=== PATIENT | female | born 1965 | race Caucasian/White ===

== ENCOUNTER 2020-10-27 16:14 | Inpatient (IN) | payer BC ==
[~2020-10-27] VITALS: Ht 170.2 cm; Wt 146.1 kg
--- NOTE | ~2020-10-27 | D ---
[facility] [place] [address] DISCHARGE SUMMARY Name: ZONIA MOLINA Room #: 522B-B [facility] IN M.R.#: [id number] Admission: 10/28/20 Attend Phys: Glenroy Wiggins DO Discharge: 11/17/20 Date of : 61 Report #: [id number] THIS REPORT FOR: cc: Physician not on staff Physician not on staff Glenroy Wiggins DO ~ DATE OF SERVICE: 11/17/2020 INPATIENT PSYCHIATRIC DISCHARGE SUMMARY ATTENDING PSYCHIATRIST: Glenroy Wiggins DO. MATERIALS MANAGEMENT MANAGER AT TIME OF DISCHARGE: Octavio Mars MD DISCHARGE DIAGNOSES: Bipolar 1 disorder, most recent episode manic with psychotic and catatonic features, much improved. Additional comorbidities include diarrhea, C. diff negative, resolved at time of discharge; hypertension; urinary tract infection, treated with Keflex; urinary incontinence; history of morbid obesity with a BMI of 50.5; compression fracture noted on x-ray, reports that is old. DISCHARGE PLAN: The patient is being discharged to the [facility] nursing facility. She does need skilled therapies, specifically PT and OT including gait disturbance, limited endurance, strength and needed improvement with ADLs. DIET: Regular. ACTIVITY LEVEL: As tolerated. DISCHARGE MEDICATIONS: Simvastatin 40 mg oral daily for hyperlipidemia, lisinopril 10 mg oral daily for hypertension, Lovenox 40 mg subcutaneous at bedtime. Gait is diminished. Depakote ER 1000 mg oral in the morning and 1500 mg oral at bedtime, Neurontin 300 mg oral 3 times daily for pain, Seroquel 300 mg oral 3 times daily for psychosis, magnesium oxide 400 mg oral twice daily as a supplement, acidophilus bulgaricus 1 packet oral before meals and at bedtime, that is 4 times a day for bowel health. Senna 8.8 mg oral twice daily, hold if diarrhea. Levothyroxine 25 mcg oral daily for replacement. Nystatin and triamcinolone 15 g cream, 2 g topical twice daily under ____. Recommended continuation 2 weeks from now until resolved. Dermacerin 4 ounce, apply daily to dermatitis below ____. LABORATORY DATA: This admission, most recently 11/16/2020, H and H 13.4 and 40.7, white count 7.9, platelet count 226. Coagulation: D-dimer done 11/10/2020 which was 0.37, which is normal. Chemistries from 11/16/2020, sodium 137, potassium 4.3, chloride 99, bicarbonate 31, anion gap 7, BUN 5, creatinine [address] [address] DISCHARGE SUMMARY Name: ZONIA MOLINA Room #: 52-B [facility] IN M.R.#: [id number] Admission: 10/28/20 Attend Phys: Glenroy Wiggins, DO Discharge: 11/17/20 Date of : 61 Report #: [id number] 1.1, estimated GFR 51, glucose 154, calcium 9.5, magnesium ____ 11/10/2020 at 1.4. TSH was normal at 1.001 on 11/02/2020. Micro this admission, occult blood was negative. Urine culture from 11/01/2020 showed 3 or more organisms, so was negative culture. REASON FOR ADMISSION: Back on or so october was as follows: A 55-year-old morbidly obese female. She was brought to [facility] on 10/24/2020 with altered mental status. She was admitted medically there. There was evidence of catatonia. Once she was medically stabilized, she was sent for psychiatric admission. HOSPITAL COURSE: The patient was admitted to Geriatric Psychiatry Unit. Initially saw by Dr. Sneed. She had predominant catatonic features, was given lorazepam trial. The next day or so, I assumed her care. I put her on scheduled lorazepam. There was a dramatic switch to frankly manic expressed presentation. We had instances of impulsivity and agitation. She was started on Seroquel in addition to the Depakote, she is on a lower dose. Depakote was titrated to a blood level of 90. Seroquel, she was titrated to greater than 900 mg a day. Slowly things improved throughout the admission. It was obvious she is needing extra help with her ADLs and physical conditioning. The patient was agreeable to a fci facility. It should be noted her , Tobi, was very involved. He did admit that the patient isolates herself and has little activity. He works during the day. The patient was counseled on this. CONDITION AT DISCHARGE: Stable, not suicidal or homicidal. PHYSICAL EXAMINATION: VITAL SIGNS: On the day of discharge are as follows, it looks like most recent from 11/16/2020, temperature 97.2, pulse 103, BP 136/85 ____ 1931, O2 sat 95%. MUSCULOSKELETAL: Morbidly obese female, seated in chair usually, ambulates with walker. MENTAL STATUS EXAMINATION: This is a well-developed, morbidly obese female appearing at least stated age. Attention fair. Concentration fair. Speech is normal in rate, volume and tone. Thought process is linear and goal directed. Thought content focused on going to Rehabilitation Facility. No psychomotor agitation. No psychomotor retardation. Mood and affect was congruent and euthymic. Denied SI or HI. Denied auditory, visual, or tactile hallucinations. Memory not formally tested. Insight limited. Judgment fair to limited. Fund of knowledge average range. PROGNOSIS: For this patient is guarded and will depend on her compliance with [facility] [address] [place] [address] DISCHARGE SUMMARY Name: ZONIA MOLINA Room #: 522B-B [facility] IN M.R.#: [id number] Admission: 10/28/20 Attend Phys: Glenroy Wiggins DO Discharge: 11/17/20 Date of : 61 Report #: [id number] treatment, the efforts during her fci stay and continuing to maintain an active engaged life versus her behavior prior to hospitalization. By: [id number] Glenroy Wiggins, /nt
[~2020-10-27 16:14] MED LIST: AMITRIPTYLINE H10 M1 PO; CLONAZEPAM; CLONAZEPAM 1 MG1 M1 PO; CYCLOBENZAPRINE10 MG; DESYREL100 MG PO; DESYREL50 MG PO; ESKALITH300 MG PO; FLEXERIL PO; GYNODIOL0.5 MG PO; HYDROXYZINE HCL25 M1 PO; LAMICTAL XR100 MG PO; LEVOTHYROXIN0.025 MG PO; LEXAPRO 10 MG T10 MG PO; LITHIUM CARBON450 MG PO; SEROQUEL 100 M100 MG PO; SEROQUEL XR 30300 M1 PO; SIMVASTATIN40 MG PO
[2020-10-27] MEDS ORDERED: DIVALPROEX SOD500 M1 PO (19:19)
[2020-10-27] MEDS ORDERED: PROZAC20 M1 PO (19:51)
[2020-10-27] MEDS ORDERED: NEURONTIN100 MG PO (19:52)
[2020-10-27] MEDS ORDERED: LISINOPRIL10 MG PO (19:54)
[2020-10-27] MEDS ORDERED: MELOXICAM15 MG PO (19:55)
[2020-10-27] MEDS ORDERED: REMERON15 M2 PO (19:56)
[2020-10-28 05:19] VITALS: BP 128/84
--- NOTE | 2020-10-28 06:49 | NUR ---
RECEIVED REPORT FROM GAUTAM JENKINS FROM ED. PT ARRIVED ON H UNIT 0450 AND CARE WAS TRANSFERRED PT AAOX1, VS B/P 128/87, P 92, R 18, T 98.0, 02 SAT 94% RA RR EVEN AND NONLABORED. PT HAS BEEN NONVERBAL, BUT ANSWERES QUESTION SHAKING HEAD IN YES OR NO FASHION. PT DENIED SI/HI AND PAIN AT THIS TIME. CONSENTS RECEIVED FROM CATRACHITA, MARY MOLINA WITH CONFIRMATION OF MEDICATION. HCP Carol VELAZQUEZ DO CONSULTED AND ORDERS RECEIVED. PT HAS A HX HTN, OBESITY, MENIERES, BI-POLAR, ANXIETY. PT HAS REDNESS IN KRYSTLE AREA AND IN SKIN FOLDS. ZERO S/S OF ACUTE DISTRESS NOTED, PT WILL CONTINUE TO BE MONITOR PER [facility] PROTOCOL.
[2020-10-28 10:03] VITALS: BP 158/93
[2020-10-28 10:58] LABS: HEMATOCRIT 41.7 % (37.0-47.0); HEMOGLOBIN 13.7 gm/dL (12.0-15.0); MCH 32.6 pg (26.0-34.0); MCHC 32.9 g/dL (28.0-37.0); MCV 99.1 fL (80.0-100.0); RBC 4.21 mil/uL (4.20-5.00); RDW 14.1 % (10.5-14.5); WBC 14.3 thou/uL (4.0-11.0)
[2020-10-28 11:19] LABS: CALCIUM 9.8 mg/dL (8.5-10.1); CREATININE 1.1 mg/dL (0.6-1.0); POTASSIUM 4.2 mmol/L (3.5-5.1)
--- NOTE | 2020-10-28 17:20 | NUR ---
0700 ASSUMED CARE OF PATIENT, PATIENT SITTING UP IN BED WITH EYES CLOSED. PATIENT TAKEN BREAKFAST IN BED @0815. 0900 PROPERTY MAINTENANCE SUPERVISOR TO ROOM OBSERVED PATIENT MOVING FOOD AROUND ON TRAY, PILING FOOD IN APPLESAUCE. PROPERTY MAINTENANCE SUPERVISOR ASKED PATIENT QUESTIONS, PATIENT ABLE TO VOICE FULL NAME THEN WHEN ASKED OTHER QUESTIONS PATIENT NODS HEAD STATING YES TO EVERY QUESTION ASKED. PATIENT THEN ROLLS EYES BACK IN HEAD FLICKERING EYE LIDS. PATIENT THEN OPENS EYES AND CONTINUES TO MOVE FOOD AROUND. PROPERTY MAINTENANCE SUPERVISOR LEAVES AND RETURNS A MIN LATER. PATIENT AGAIN ANSWERS A QUESTION THEN BECOMES SILENT AND STARES INTO SPACE. PROPERTY MAINTENANCE SUPERVISOR EXPLAINS TO PATIENT ABOUT MEDICATIONS, THEN ASKS PATIENT IF SHE WILL TAKE MEDS. PATIENT NODS YES TAKES MED CUP AND POURS MEDICATION IN MOUTH. GRABBED CUP OF WATER AND STARTED TO POUR WATER ON TRAY. PROPERTY MAINTENANCE SUPERVISOR STOPPED HER AND MOVED CUP TOWARDS MOUTH. PATIENT TAKES WATER AND SWALLOWS MEDICATION. PATIENT ASSISTED TO GERICHAIR BEFORE LUNCH X MAX ASSIST X2. PATIENT TO DAYROOM, WATCHING TV QUIETLY. PATIENT CONTINUES WITH SAME BEHAVIOR THIS MORNING WITH ALL STAFF ATTEMPTING TO WORK WITH PATIENT. PATIENT CLOSES EYES, FLICKERS EYES, OR REMAINS SILENT WHEN TALKED TO. AFTERNOON MEDICATION PATIENT TAKES CUP WITHOUT DIFFICULTY AND TAKES MEDICATION. PATIENT ASSISTED WITH DINNER BY LASTING MACHINE OPERATOR BED. PATIENT DOES NOT EAT UNLESS FED. PROPERTY MAINTENANCE SUPERVISOR SPOKE WITH SPOUSE, SPOUSE STATES PATIENT WALKED TO HER RECLINER ON THIS PAST TUESDAY AND AFTER THAT WAS NOT WALKING ANYMORE. SPOUSE ALSO MENTIONED PATIENT NOT SPEAKING FROM THAT POINT ON. WILL CONTINUE TO OBSERVE
--- NOTE | 2020-10-28 18:05 | NUR ---
PATIENT INCONTINENT, PATIENT TAKEN TO ROOM TO CHANGE BREIF. PATIENT MOANS AND GRUNTS FOR A FEW SECONDS, PATIENT THEN STANDS UP WITH MIN ASSIST. PATIENT ROTATES AND SITS ON SIDE OF BED. NEDA CARE PROVIDED WITH ZGARD APPLIED TO FOLDS. PATIENT SITS UP IN BED WITH NO RESPONSE WHEN ASKED QUESTIONS. PATIENT STARES WITH NO RESPONSE.
[2020-10-28 21:00] VITALS: BP 128/84
--- NOTE | 2020-10-29 03:18 | NUR ---
10-28-20 CARE TRANSFERRED 1899 OBSERVED PT SITTING IN BED SUPINE WITH EYES OPEN. LATER PT AAOX2, VSS, RR EVEN AND NONLABORED ON RA, PT HAVING TROUBLE ARTICULATING WORDS, BUT TRYING TO COMMUNICATE. DOES GET OUT HEADACH AND MANAGED WITH PRN MEDICATION, PT HAS BEEN PUTTING WORDS TOGETHER AND HAS EATEN TWO JELLO CUPS AND APPROXIMATELY 480ML OF WATER. PT DOES REPORT FEELING SI BUT HAS NO PLAN BUT DENIES HI. DURING REASSESSMENT FOR PAIN MEDICATION NOTED PT RESTING WITH EYES CLOSED. LATER PT HOLLARED OUT, AND RESPONED AND PT REPORTED SHE WAS SCARED; PT REPORTED SHE WANTED TO GO TO DAY ROOM. PT ASKED IF SHE WANTED TO USE TOLIET FIRST AND PT WAS PLACED ON BEDSIDE COMMODE WITH POTTY HAT, NO URINE AND NOTED BRIEF WAS HEAVY WITH URINE, PT WAS ASSISTED WITH DRY BRIEF AND PT WAS THEN TRANSFERRED TO CHAIR, PT IS A TWO PERSON ASSIST WITH GAIT BELT, PT UNSTEADY AND WEAK. PT HAS CONTINUE TO WORKING ON COMMUNICATING WITH WORDS. PT HAS BEEN PLESANT, ANXIOUS AND COOPERATIVING. ZERO S/S OF ACUTE DISTRESS NOTED, PT WILL CONTINUE TO MONITOR PER [facility] PROTOCOL.
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
[2020-10-29 10:12] VITALS: BP 141/68
--- NOTE | 2020-10-29 10:27 | NUR ---
Nutrition: Pt with hx of bipolar, HTN, HLD. Pt only speaking a couple of words. reported pt stopped eating, walking, talking last week. BUN 20, Cr 1.1. Intake 100% of 2 meals recorded. BMI inidicates class III morbid obesity, no prior wt hx available. Pt appears at low-mild nutrition risk.
--- NOTE | 2020-10-29 14:43 | NUR ---
0700 ASSUMED CARE OF PATIENT, PATIENT IN DAYROOM AT THAT TIME. PATIENT NOTED FEEDING SELF THIS AM. PATIENT IS QUIET AND DOES ANSWER SIMPLE QUESTIONS. PATIENT TEARY EYED THIS MORNING. WOOD FURNITURE ASSEMBLER TALKED TO PATIENT, PATIENT LISTENED BUT DID NOT RESPOND. MEDICATIONS TAKEN WHOLE WITHOUT DIFFICULTY. PATIENT PRESENT IN GROUPS TODAY. PATIENT NOTED TALKING WITH OTHER PATIENTS. PATIENT CALM AND COOPERATIVE. PATIENT WORKS WITH OT WITH MIN TO STANDBY ASSIST. ORDERS RECIEVED FROM DR FOR Q2 HR TOILETING. PATIENT INCONTINENT. NO C/O PAIN, LS CLEAR, BS ACTIVE.
[2020-10-29 19:46] VITALS: BP 121/85
--- NOTE | 2020-10-30 05:24 | NUR ---
10-29-20 CARE TRANSFERRED 1900 OBSERVED PT SITTING IN DAY ROOM RESTING WITH EYES CLOSED. WHILE AWAKE PT HAS BEEN TAKEN TO BEDSIDE COMMODE PER PROVIDER ORDERS, UNABLE TO OBTAIN UA, BRIEF FULL, YELLOW URINE. ZERO S/S OF ACUTE DISTRESS NOTED, PT WILL CONTINUE TO BE MONITOR PER [facility] PROTOCOL.
[2020-10-30 08:06] VITALS: BP 167/106
[2020-10-30 11:00] VITALS: BP 136/88
--- NOTE | 2020-10-30 11:43 | NUR ---
INVENTORY CLERK completed 1;1 with pt for aprx 35 minutes. Pt provided a color by number sheet and was able to follow directions and remain on task for aprx 10 minutes until beginning to scribble on page. At this time she began yelling out single words or letters. Therapist asked pt if something was telling her to say these words and pt responded in the affirmative. She then shouted, "after ECT!" and began crying hysterically. Pt relays that she had ECT 25 years ago and hears voices. Unsure of the reality of this. Pt then began drawing smiley faces, numbers, and letters throughout her page; "the lady told me to. The lady in red." and looks to her side where a male patient in yellow is seated. Following 1;1 pt is left seated in dayroom where she has continued to color a new page. She intermittently yells out objects she sees- "windows!" or "hi grandpa!" as a male pt is wheeled near her.
--- NOTE | 2020-10-30 14:07 | NUR ---
Patient has had several, incontinent, loose stools. Stool foul odor, loose. No laxatives prescribed/administered. Spoke with Dr. Wiggins. Order for c-diff lab completed. Stool collected and sent to lab.
--- NOTE | 2020-10-30 15:06 | NUR ---
0700 ASSUMED CARE OF PATIENT, PATIENT SITTING IN WC AT THAT TIME. PATIENT CALM AND QUIET. BREAKFAST ARRIVES AND PATIENT ASSISTED WITH MEAL SET UP. PATIENT NOTED TALKING OUT LOUD READING THE Credor[employer] BOARD IN DAYROOM VOICING ONE LETTER AT A TIME. PATIENT NOTED CRYING AND TEARY EYED TODAY. PATIENT OBSERVED POINTING AT STAFF AND PATIENTS BLURTING OUT RANDOM WORDS SUCH : , BLACK, [place], FAT" AND ON AND ON. PATIENT CONTINUES THIS BEHAVIOR WITH INCREASED AGGITATION. DR'S ORDER RECIEVED FOR ONE TIME SEROQUEL 75MG PO, GIVEN AT 1305. PATIENT WAS UNABLE TO FEED SELF, PATIENT MAKING MESS OF FOOD ATTEMPTING TO POUR FOOD EVERYWHERE. PATIENT DID NOT EAT MUSH OF MEAL. PATIENT TO WITH LOOSE STOOL 3RD STOOL TODAY, SAMPLE COLLECTED AND SENT FOR C-DIFF. RESULTS PENDING AT THIS TIME. PATIENT SITTING IN DAYROOM QUIETLY AT THIS TIME.
[2020-10-30 19:59] VITALS: BP 134/89
[2020-10-30 23:33] VITALS: BP 134/89
--- NOTE | 2020-10-31 00:06 | NUR ---
ASSUMED CARE ON 10/30/20 @ 1900, SEATED IN A W/C ADJACENT TO THE NURSES DESK. PROPELLED SELF INTO A MALE PEER'S ROOM AND HOLDING ONTO HIS BED WHEN STAFF ATTEMPTED TO WHEEL HER OUT OF THE ROOM. INCREASING AGITATION, PHYSICALLY RESISTING CARE AND REDIRECTION. HOLDING PEERS CHAIRS AND PUTTING SELF AND PEERS SAFETY AT RISK. PHYSICALLY HOLDING STAFF AND REFUSING TO RELEASE GRASP. REFUSING PO MEDS. ORDER OBTAINED FOR GEODON 20MG IM, ADMINISTERED IN THE R DELTOID WITH X3 STAFF ASSISTANCE. AFTER ABOUT AN HOUR, RETIRED TO BED BY STAFF. A SECOND ATTEMPT WAS MADE TO PROVIDE P.O. MEDS WHICH THE PATIENT CONTINUED TO REFUSE. IN BED WITH BED IN LOW POSITION, BED ALARM SET, WILL CONTINUE TO MONITOR PER UNIT PROTOCOL FOR PATIENT SAFETY AND COMFORT.
--- NOTE | 2020-10-31 08:20 | NUR ---
PT SLEEPING AT THIS TIME. PT UNABLE TO TAKE MEDICATIONS OR EAT BREAKFAST AT THIS TIME. PT SEEMS CALM AND RESTING WITH EYES CLOSED.
[2020-10-31 09:57] LABS: HEMATOCRIT 40.4 % (37.0-47.0); HEMOGLOBIN 13.4 gm/dL (12.0-15.0); MCH 33.1 pg (26.0-34.0); MCHC 33.2 g/dL (28.0-37.0); MCV 99.7 fL (80.0-100.0); RBC 4.06 mil/uL (4.20-5.00); RDW 14.3 % (10.5-14.5); WBC 10.9 thou/uL (4.0-11.0)
[2020-10-31 10:00] VITALS: BP 156/96
[2020-10-31 10:11] VITALS: BP 156/96
--- NOTE | 2020-10-31 10:36 | NUR ---
PT WORKING WITH THERAPY AT THIS TIME PT/OT PT DID SIT ON THE COMMODE AND WAS TRYING TO OBTAIN A UA. PT ONLY VOIDED A DIME SIZE CREAMY COLOR. PT WALKED BACK WITH WALKER TO BED AND LAYED DOWN. PT DIDN'T WANT TO GET UP. PT TOOK MEDS WHOLE. PT STATED SHE HAS BEEN HAVING TROUBLE SAYING BLACK. PT CAN ANSWER QUESTIONS WITH ONE WORD ANSWERS.
--- NOTE | 2020-10-31 15:29 | NUR ---
ARIEL contacted Pt's DPOA/ , El Hanson, concerning a phone call from Pt's mother, Ms. Mendiola. ARIEL informed that the Pt's mother called the hospital looking for Pt and asked El to inform Ms. Mendiola the hospital is not able to give her any information due to HIPPA Laws. El stated he would inform the Pt's mother of this information.
--- NOTE | 2020-10-31 17:35 | NUR ---
PT HAD TROUBLE WITH TAKING MEDS. PT DID TAKE FINALLY. PT NOT TALKING WITH STAFF. PT SHAKING HEAD YES AND NO WITH ANSWERING QUESTIONS. PT DIDN'T EAT BREAKFAST, LUNCH, AND DINNER. PT HITTING ON BEDSIDE TABLE, AND PULLING IT BACK ONTO HER.
[2020-10-31 20:18] VITALS: BP 120/82
--- NOTE | 2020-11-01 05:29 | NUR ---
Assumed care of patient at 1900. Pt sitting in w/c at start of this shift. Pt medication complaint. Pt compliant with HS nursing assesment. Pt denies pain. Pt denies depression and SI;HI. Pt does nod her head yes when asked if she was having any anxiety. Does not rate. Pt has been non-verbal during assessment and when approached by staff. Pt is on q12 minute checks for safety. Will continue to monitor and document any changes.
[2020-11-01 09:16] VITALS: BP 129/69
[2020-11-01 12:22] LABS: URINE BILIRUBIN NEGATIVE (Negative); URINE BLOOD TRACE (Negative); URINE CLARITY CLOUDY; URINE COLOR YELLOW; URINE GLUCOSE-RANDOM* NEGATIVE (Negative); URINE KETONES TRACE (Negative); URINE PROTEIN (DIPSTICK) NEGATIVE (Negative); URINE SPECIFIC GRAVITY 1.025 (1.005-1.035); URINE UROBILINOGEN 0.2 E.U./dl (0.2-1.0)
[2020-11-01 12:24] LABS: URINE LEUKOCYTES-REFLEX 1+ (Negative); URINE NITRITE-REFLEX POSITIVE (Negative)
[2020-11-01 13:18] LABS: CASTS None Seen /LPF (None Seen); MUCUS 0-3 Light strn/LPF (None Seen); SQUAMOUS 4-10 Moderate /LPF (0-3); URINE RBC None Seen /HPF (0-2); URINE WBC-REFLEX 0-5 Rare /HPF (0-5)
[2020-11-01 13:19] LABS: CRYSTALS None Seen /LPF (None Seen)
--- NOTE | 2020-11-01 16:29 | NUR ---
Alert and orientated X3. Denies SI/HI. Flat affect. Able to take several steps to transfer to bed and . Pocketed several of her meds after AM pass, repeated meds she spit out. Asking for in afternoon, appeared to understand that he could not visit. Spends majority of time being nonverbal. Breath sounds clear. Reg HR auscultated. Color pink with brisk capillary refill and palpable peripheral pulses. Edema in lower extremities.Incontinent of yellow urine. Straight cath done for small amt yellow cloudy urine, started on cephalexin for UTI. Active bowel sounds over large, soft, rounded abdomen. Large, yellow liquid stool. Able to assist with turning and scooting in bed. Some erythema between buttocks, zpaste applied. Currently resting in bed without s/o distress.
--- NOTE | 2020-11-02 04:13 | NUR ---
ASSESSMENT: PT REMAIN ALERT AND ORIENT TIMES 2-3, SELECTIVE ABOUT RESPONDING AND COOPERATING. WAS IN THE WC IN HER ROOM AT THE CHANGE OF SHIFT. VSS, AFEBRILE. DID BEGAN SPEAKING AND LETTING HER NEEDS BE KNOWN. NO SCREAMING EPISODE THIS SHIFT. COMPLIANT WITH MEDS UNTIL 0000, REFUSED TO TAKE CEPHALEXIN FOR UTI DX. TOILETED EVERY TWO HOURS WHILE AWAKE. DID NOT POCKET MEDS. ABLE TO TAKE SEVERAL STEPS WITH PIVOTING FROM WC TO BED. NO BM. SLOW PROGRESS TOWARDS DC GOALS, WILL CONTINUE TO MONITOR.
[2020-11-02 11:22] VITALS: BP 141/88
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
[2020-11-02 19:18] VITALS: BP 155/90
--- NOTE | 2020-11-03 04:56 | NUR ---
RECIEVED CARE OF THIS PATIENT AT 1900. ALERT AND ORIENTED TO PERSON AND PLACE. IN BED ALL SHIFT. TOOK MEDS WITHOUT PROBLEM. C/O MILD PAIN BUT DID NOT NEED MED. SLEPT MOST OF NIGHT.
[2020-11-03 11:45] VITALS: BP 105/61
[2020-11-03 12:41] LABS: CALCIUM 9.7 mg/dL (8.5-10.1); CREATININE 0.9 mg/dL (0.6-1.0); POTASSIUM 3.7 mmol/L (3.5-5.1)
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
--- NOTE | 2020-11-03 14:58 | EKG ---
[place] [address] [facility] [address] [place] [address] ELECTROCARDIOGRAM REPORT Name: ZONIA MOLINA Room #: [facility] ADM IN M.R.#: [id number] Admission: 10/28/20 Attend Phys: Glenroy Wiggins DO Discharge: Date of : 61 Report #: [id number] [facility] Test Date: 2020-11-03 Test Time: 08:06:58 Pat Name: ZONIA MOLINA Department: Room: [facility] Gender: F Machining Engineer: KINZA : [id number] Requested By: Susan Call Order Number: [id number] MD: Jacinto Thomas Measurements Intervals [place] Rate: 94 P: 28 LA: 131 QRS: 18 QRSD: 91 T: 19 QT: 360 QTc: 451 Interpretive Statements Sinus rhythm Low voltage, precordial leads RSR' in V1 or V2, right VCD or RVH No previous ECG available for comparison Electronically Signed On 11-03-2020 14:58:22 CDT by Jacinto Thomas [email or web address] <ELECTRONICALLY SIGNED> By: Jacinto Thomas MD 11/03/20 1458 5 5 Jacinto Thomas MD /SUNITHA
[2020-11-03 19:35] VITALS: BP 101/71
[2020-11-04 01:21] VITALS: BP 101/71
--- NOTE | 2020-11-04 03:19 | NUR ---
PT BEEN RESTING IN NO ACUTE DISTRESS.A/OX4,SLEEPING MOST OF THE NOC,DENIES SI.PRESENTS WITH SOME ANXIETY AND TEARFUL EPISODES AT TIMES ESPECIALLY WHEN ASKING FOR HELP.EMOTIONAL SUPPORT GIVEN.TOOK HER MEDS WITHOUT PROBLEMS.ASSIST X1 W/TRANSFERS AND TOILETING.NO DIARRHEA REPORTED SO FAR THIS SHIFT.DENIES PAIN.VSS.POC IS TO CONTINUE WITH CURRENT MANAGEMENT.SEE OTHER INTERVENTIONS DOCUMENTED.
[2020-11-04 07:00] VITALS: BP 135/111
--- NOTE | 2020-11-04 14:25 | NUR ---
RT Progress Note- Martine has had variable participation in the milieu and groups since her admission r/t her behaviors. Martine has caused disruptions in the milieu- yelling, crying hysterically and loudly, blurting out her thoughts- all which have kept her from being able to provide productive participation. However within the last 2 days these behaviors have decreased and Martine has participated in all groups with frequent encouragement and reinforcement of her improvement. TRANSITION RN will continue to encourage patient's improvement and participation in group.
--- NOTE | 2020-11-04 15:33 | NUR ---
PATIENT HAS BEEN UP, AND OUT ON THE UNIT, PARTICIPATES IN GROUP THERAPY. PATIENT TOOK ALL MEDICATION WHOLE WITHOUT DIFFICULTY, SHE IS EATING MEALS, AND DRINKING FLUID WELL. PATIENT DENIES SUICIDAL/HOMICIDAL IDEATIION. PATIENT ASSISTED TO BED AFTER MORNING GROUP, BECAME UPSET/TEARFUL WHEN ENCOURAGED BY STAFF TO COME OUT FOR LUNCH. PATIENT NOTED RESPONDING TO INTERNAL STIMULI, TALKS TO SELF, AND UNSEEN OTHERS. PATIENT CAN BE RELIGIOUSLY PREOCCUPIED AT TIMES. PATIENT DENIES SUICIDAL/HOMICIDAL IDEATION, SHE DENIES DEPRESSION, RATES ANXIETY 3/10, DENIES HAVING PHYSICAL PAIN. AFFECT IS LABILE, MOOD CALM, COOPERATIVE WITH CARE. NO SIGN OF ACUTE DISTRESS NOTED AT THIS TIME, WILL MONITOR FOR SAFETY.
[2020-11-04 20:00] VITALS: BP 117/66
--- NOTE | 2020-11-05 03:38 | NUR ---
ASSESSMENT DOCUMENTED.PT A/OX3.PT HAS BEEN CALM MAJORITY OF THE TIME,CO-OPERATIVE WITH CARE.TOOK HER MEDS W/O PROBLEMS.ASSIST OF 1 W/TRANSFERS.PT SLEPT IN BED FOR 2 HRS IN THE BED AND BEEN RESTING IN THE GERICHAIR AT THE DINING ROOM FOR THE REST OF THE NIGHT DOSING ON AND OFF.C/O HEADCHE LAST NIGHT THAT WAS CONTROLLED WITH TYLENOL W/COMPLETE RELIEF.PT IS TEARFUL AT TIMES ESPECIALLY WHEN SHE IS VOICING HER NEEDS,SUPPORTED EMOTIONALLY.PT DENIES FURTHER CONCERS AT THIS TIME.POC IS TO CONT W/ CURRENT MEDICAL MANAGEMENT W/ AGOAL OF PT DISCHARGING TO HOME.
[2020-11-05 10:05] VITALS: BP 132/82
--- NOTE | 2020-11-05 15:26 | NUR ---
PATIENT HAS BEEN UP IN [facility] SLEEPING OFF/ON, PARTICIPATING IN GROUP THERAPY. PATIENT TOOK ALL MEDICATION WHOLE WITHOUT MEDICATION. SHE IS EATING MEALS, AND DRINKING FLUID WELL. PATIENT DENIES SUICIDAL/HOMICIDAL IDEATION, SHE RATES DEPRESSION 8/10, DENIES ANXIETY, AND PHYSICAL PAIN. INTERMITTENT TEARFULNESS NOTED. AFFECT IS APPROPRIATE, MOOD IS CALM. PATIENT MADE SOME DELUSIONAL STATEMENT THIS AFTERNOON. "IT LOOKS LIKE A SECOND TONGUE STARTING TO GROW IN MY MOUTH". PATIENT'S MOUTH INSPECTED, NO ADDITIONAL TONGUE NOTED. NO SIGN OF ACUTE DISTRESS NOTED AT THIS TIME, WILL MONITOR FOR SAFETY.
[2020-11-05 19:42] VITALS: BP 117/68
[2020-11-05 22:59] VITALS: BP 117/68
--- NOTE | 2020-11-06 04:22 | NUR ---
Assumed care of pt at 1900. Pt sitting in gerichair in dayroom. Pt had a verbal outburst and was tearful throughout the earlier part of the evening. Pt had outburst when a medical emergency happend on unit, attempting to get staff to focus on her versus the pt needing medical treatment. Pt is A & O x 1. Pt had PRN Geodone, 20 mg IM for agitation @ 2011, as pt was having verbal outburst and triggered by another pt medical emergency event on floor. After PRN pt started to calm down. Pt attempting to staff split by yelling out and mocking others. Pt is A&O x 2. After PRN pt remained tearful at times. Did finally calm down. Compliant with taking scheduled medications whole. Sat out in dining room after medications until going to bed. Pt last BM was 3.17.21. Pt rested in bed and appeared to be sleeping during night. Pt on 12 min checks for safety. Pt denies pain, SI/HI, depression. Pt randomly does cry and become tearful. Will continue to monitor for mood/changes in behaviors
[2020-11-06 09:24] VITALS: BP 151/94
[2020-11-06 09:46] VITALS: BP 151/94
--- NOTE | 2020-11-06 12:14 | NUR ---
1200 RESUMMED CARE FROM OVERNIGHT SHIFT THIS AM, PATIENT IN ROOM QUIET. I GOT PATIENT UP BROUGHT HER TO THE DAY ROOM FOR BREAKFAST, PATIENT TOOK MEDICATION WITHOUT INCIDENCE. PATIENT ALERT ORIENTED TIMES 2-3 PATIENT DENIES SI/HI/AH/VH AT PRESENT. PATIENTS ABDOMEN SOFT BOWEL SOUNDS PRESENT PATIENTS LUNGS CLEAR, PATIENT WAS CALM UNTIL PT STARTED WORKING WITH PATIENT; SHE PUT HERSELF ON THE FLOOR. PATIENT YELLING OUT HELP HER SO WE TALKED WITH PATIENT TO CALM HER AND SHE GOT BACK INTO W/C WITH HELP FROM STAFF. PATIENT IS NOT TAKING HER TREATMENT SERIOUS SHE PRETENDS THINGS ARE WRONG AND WANTS ATTENTION. PATIENT DENIES SI/HI/AH/VH AT PRESENT PATIENT WAS ABLE TO ATTEND GROUP AND PARTICIPATE. WILL CONTINUE TO MONITOR PATIENT FOR SAFETY AND BEHAVIORS.
[2020-11-06 19:50] VITALS: BP 140/118
[2020-11-07 09:36] VITALS: BP 133/82
[2020-11-07 11:22] VITALS: BP 130/66
--- NOTE | 2020-11-07 14:26 | NUR ---
1425 RESUMMED CARE FROM OVERNIGHT SHIFT THIS AM, PATIENT IN ROOM SLEEPING. I GOT PATIENT UP FOR BREAKFAST SHE TOOK MEDICATION WITHOUT INCIDENCE. PATIENT DENIES SI/HI/AH/VH AT PRESENT PATIENT CALM COOPERATIVE. PATIENT ALERT ORIENTED TO SELF AND PLACE PATIENTS ABDDOMEN SOFT BOWEL SOUNDS PRESENT. PATIENTS LUNGS CLEAR PATIENT PARTICIPATED IN GROUPS. PATIENT DENIES SI/HI/AH/VH AT PRESENT. PATIENTS CALLED TO GET AN UPDATE I TOLD PATIENT HER CALLED. WILL CONTINUE TO MONITOR PATIENT FOR SAFETY AND BEHAVIORS.
[2020-11-07 20:41] VITALS: BP 104/72
[2020-11-08 08:16] LABS: HEMOGLOBIN 12.1 gm/dL (12.0-15.0); MCH 33.7 pg (26.0-34.0); MCHC 33.5 g/dL (28.0-37.0); MCV 100.6 fL (80.0-100.0); PLATELET COUNT 260 thou/uL (150-400); RBC 3.58 mil/uL (4.20-5.00); RDW 14.3 % (10.5-14.5); WBC 7.9 thou/uL (4.0-11.0)
[2020-11-08 08:25] VITALS: BP 135/78
[2020-11-08 08:25] LABS: ALBUMIN 3.1 g/dL (3.4-5.0); CALCIUM 9.7 mg/dL (8.5-10.1); MAGNESIUM 1.4 mg/dL (1.8-2.4); POTASSIUM 4.6 mmol/L (3.5-5.1); TOTAL BILIRUBIN 0.2 mg/dL (0.2-1.0); TOTAL PROTEIN 6.6 g/dL (6.4-8.2)
[2020-11-08 08:52] LABS: ABSOLUTE NEUTROPHILS 4.3 thou/uL (1.4-8.2); PLATELET ESTIMATE NORMAL
[2020-11-08 19:54] VITALS: BP 98/60
[2020-11-08 22:38] VITALS: BP 98/60
--- NOTE | 2020-11-09 01:59 | NUR ---
Assumed care on 11/08/20 @ 1900, reclined in damián chair A&Ox3. Emotional labile, tearful and when speaking to family on the phone, quite emotional and tearful. called and spoke to patient, then she called another family member. Reports back pain of 6/10 and requests Tylenol 650 which was provided as per order. Follow up pain rated as partial relief of 3/10. Mixed continent/incontinent. High fall risk with a Hernandez scale of 55. Denies SI/HI, AH/VH. Says that she is lonely, however is sitting at a table with another oriented patient. In bed at this writing, bed in low position, bed alam set. Will continue to monitor as per unit protocol for safety and comfort.
[2020-11-09 09:49] VITALS: BP 136/74
--- NOTE | 2020-11-09 17:58 | NUR ---
0700 ASSUMED CARE OF PATIENT, PATIENT IN DAYROOM IN CHAIR. SLEEPING OFF AND ON IN DAYROOM. MEDICATION TAKEN WHOLE WITHOUT DIFFICULTY. PATIENT EMOTIONAL LABILE. READS WHITE BOARD IN DAYROOM WORD FOR WORD WELL WHATS ON TV OUT LOUD. PATIENT HAD A LARGE LOOSE BROWN STOOL. PATIENT TO SHOWER, CLEANED UP X3 ASSIST. SITS QUIETLY WATCHING TV. LS CLEAR, BS ACTIVE. C/O HEARTBURN. MAALOX GIVEN. WILL CONTINUE TO OBSERVE
[2020-11-09 19:00] VITALS: BP 100/60
--- NOTE | 2020-11-10 04:19 | NUR ---
ASSUMED CARE ROM DAY SHIFT , PT SITTING UP IN WHEELCHAIR IN DAYROOM ,PT EMOTIONS ARE VERY LABILE ,YELLING STAFF THEN CRYING AND VERY SORRY FOR BEHAVIOR. WHEN ASK WHY SHE IS CRYING, PT STATES SHE DO NOT KNOW WHY. PT ABLE TO TAKE MEDICATON AND THENTO ROOM AND TO BSC THEN BED , WEAKNESS NOTED,ASSIST X1. PT APPEARS TO BE RESTING WELL THORUGHOUT FREQ ROUNDING. WILL CONINTUE WITH CURRENT PLAN OF CARE.
[2020-11-10 05:21] LABS: ABSOLUTE NEUTROPHILS 5.7 thou/uL (1.4-8.2); BASOPHILS 0.5 % (0.0-2.0); EOSINOPHILS 2.3 % (0.0-3.0); HEMATOCRIT 37.1 % (37.0-47.0); HEMOGLOBIN 12.2 gm/dL (12.0-15.0); LYMPHOCYTES 26.5 % (24.0-44.0); MCHC 32.8 g/dL (28.0-37.0); MCV 100.6 fL (80.0-100.0); MONOCYTES 12.2 % (1.0-8.0); PLATELET COUNT 244 thou/uL (150-400); POLYS 58.5 % (36.0-66.0); RBC 3.68 mil/uL (4.20-5.00); RDW 14.4 % (10.5-14.5); WBC 9.7 thou/uL (4.0-11.0)
[2020-11-10 05:37] LABS: CALCIUM 9.2 mg/dL (8.5-10.1); CREATININE 0.8 mg/dL (0.6-1.0); MAGNESIUM 1.4 mg/dL (1.8-2.4); POTASSIUM 3.3 mmol/L (3.5-5.1)
--- NOTE | 2020-11-10 09:15 | NUR ---
Nutrition: f/u on pt with bipolar disorder. Intake has improved significantly from a week ago. Weekend avg intake 69%. Wt up from prior assessment and back near admit wt. Albumin 3.1, Mg 1.4, K 3.3. Floranex, statin, and other meds reviewed. Appears nutrition satatus has improved to low-mild risk, continue Ensure daily.
[2020-11-10 10:27] VITALS: BP 152/99
--- NOTE | 2020-11-10 13:08 | NUR ---
Assumed pt care at 0700. pt was Alert and oriented x3. pt was calm and co-operative with care. Assessments completed, Vss. pt took meds whole, no difficulty noted. denies si/hi. At this time there is no c/o of pain. pt attend group, but did not really participate. ambulates with a w/c. will continue to monitor pt.
--- NOTE | 2020-11-10 14:54 | NUR ---
ARIEL sent referrals to the following: [facility] [place]
[2020-11-10 19:26] VITALS: BP 117/77
--- NOTE | 2020-11-11 02:13 | NUR ---
ASSESSMENT: PT REMAIN ALERT AND ORIENT TIMES THREE. UP IN JOVANNA CHAIR AND THE BEGINNING OF THE SHIFT. LATER WENT TO BED BUT WAS RUDELY AWAKEN BY ANOTHER PT WHOM HAD WONDER OFF INTO HER ROOM AND WOKEN HER UP. PT CAME OUT TO THE DAY AREA TO GET INTO A JOVANNA CHAIR WHERE SHE SLEPT MOST OF THE NIGHT. VSS, AFEBRILE. DENIES PAIN, SOB AND N/V. PT AMBULATED WITHOUT THE USE OF THE WC. UP WITH THE ASSISTANCE OF 2 MOST TIMES. STILL ASLEEPING AT A TABLE, IN A JOVANNA CHAIR, IN THE DAY AREA. WILL CONTINUE TO MONITOR.
[2020-11-11 07:55] VITALS: BP 158/104
--- NOTE | 2020-11-11 09:42 | NUR ---
Assumed pt care at 0700. pt was alert and oriented x3. pt is calm and co-operative with care at this time. pt took her medication whole. No difficulty noted. denies si/hi. denies pain. there is no sign of acute distress noted during asssessments. Assessments completed, VSS. pt ambulates with w/c. pt is participating in groups. pt is currently sitting in the day room. Will continue to monitor.
--- NOTE | 2020-11-11 11:49 | NUR ---
RT Progress Note- Martine's presence in the milieu and in recreation therapy groups has improved since previous progress note entry. Martine's disruptive behaviors have decreased and she is able to provide meaningful participation, though still labile in mood. Martine expresses a desire to return to her home, but sadness that she feels lonely at home. Recreation Therapy team will work to improve Martine's time management and leisure planning skills while encouraging her continued participation in groups and milieu.
[2020-11-11 19:26] VITALS: BP 141/78
--- NOTE | 2020-11-12 05:42 | NUR ---
Assumed care for pt at 1900. Pt sitting in gerichair in dining room at start of shift. Pt has been pleasant and cooperative this shift. Pt denies any pain, and SI/HI. Pt reports depression and anxiety at a 9/10. Pt gets tearful when discussing anxiety and depression. Pt reports last bowel movement was 11/09/20. Pt is a fall risk and has fall protocol in place. Pt reports being tired and was offered to help her get to bed. Pt declined and stated that she wanted to remain in the dining room. Pt rested in damián chair with eyes closed. pt is on 12 min checks for safety. Will continue to observe for any changes in mood/behaviors.
[2020-11-12 09:14] VITALS: BP 126/75
--- NOTE | 2020-11-12 11:10 | NUR ---
PATIENT HAS BEEN UP, AND OUT ON THE UNIT, SITTING IN GERICHAIR IN DAYROOM. PATIENT PARTICIPATING IN GROUP THERAPY. PATIENT TOOK ALL MEDICATION WHOLE WITHOUT DIFFICULTY, SHE IS EATING MEALS, AND DRINKING FLUID WELL. PATIENT DENIES SUICIDAL/HOMICIDAL IDEATION. SHE RATES DEPRESSION 3/10, DENIES ANXIETY, RATES GENERALIZED PAIN 8/10, PRN TYLENOL 650MG GIVEN, WITH POSITIVE EFFECT, PAIN DECREASED TO 0/10 UPON REASSESSMENT. AFFECT IS SAD, MOOD IS CALM, SHE IS COOPERATIVE WITH CARE. NO SIGN OF ACUTE DISTRESS NOTED AT THIS TIME, WILL MONITOR FOR SAFETY.
[2020-11-12 19:20] VITALS: BP 114/71
--- NOTE | 2020-11-13 03:21 | NUR ---
ASSUMED CARE FROM DAY SHIFT PT RESITNG IN DAY IN GERICHAIR , MOOD VERY LABILE, TELLING AT STAFF ,AND AGITATED. WAS ABLE TO TAKE HS MEDICAITON THEN REFUSED TO LEAVE DAYROOM TO GO TO ROOM FOR SLEEP. PT REQUESTED MORE MEDICATION SLEEP ,INFORMED PT TO TRY TO GO TO ROOM AND LIE DOWN THEN IF SHE COULD NOT SLEEP THEN I WOULD CALL AND REQEST TO HELP. PT THEN GOT UP OUT GEHICHAIR THROW BLANKLETS AT [facility] THEN WALKED TO ROOM. PT SO ON FELL ASPLEEP. REMAIN ASLEEP,FREQ ROUNDING BEDALARM ON FOR SAFETY ,WILL CONINTUE WITH CURRENT PLAN OF CARE.
[2020-11-13 07:45] VITALS: BP 146/84
[2020-11-13 08:17] LABS: URINE BILIRUBIN NEGATIVE (Negative); URINE BLOOD NEGATIVE (Negative); URINE CLARITY CLEAR; URINE COLOR YELLOW; URINE GLUCOSE-RANDOM* NEGATIVE (Negative); URINE KETONES NEGATIVE (Negative); URINE LEUKOCYTES-REFLEX NEGATIVE (Negative); URINE NITRITE-REFLEX NEGATIVE (Negative); URINE PROTEIN (DIPSTICK) NEGATIVE (Negative); URINE UROBILINOGEN 0.2 E.U./dl (0.2-1.0)
--- NOTE | 2020-11-13 09:39 | NUR ---
ARIEL sent referrals to the following [facility]
--- NOTE | 2020-11-13 11:17 | NUR ---
Alert and orientated x 4 denies SI/HI. Interactive with staff and peers. Requesting WC this AM, able to stand and take several steps, transfers independently. Ambulating in unit independently under supervision of PT. Breath sounds clear. Reg HR auscultated. Color pink with brisk capillary refill and palpable peripheral pulses. Voided 600 cc clear yellow urine in hat, UA sent per order. No stool since 11/09, milk of magnesium given, Dr. Wiggins aware. Skin without redness or excoration, nystatin applied to inguinal fold per order. Currently sleeping in damián chair without s/o distress.
--- NOTE | 2020-11-13 17:12 | NUR ---
Admitted per ER for erratic behavior and delusional behavior. Threatened daughter. Recent hospitalization for similar behavior and incarcerated for 10 days. Denies SI/HI. Becomes angry frequently but is redirectable. Alert and orientated X4 but believes she is on a cruise ship. Breath sounds clear. Reg HR auscultated. Color pink with brisk capillary refill and palpable peripheral pulses. No edema noted. Independent with voiding. Active bowel sounds over soft, rounded abdomen. States last BM was yesterday. Ambulates with regular, steady gait. Daughter contacted, states she will hot die picker home meds tomorrow. Currently eating dinner in day room with peers.
[2020-11-13 19:15] VITALS: BP 125/89
[2020-11-14 10:13] VITALS: BP 147/95
--- NOTE | 2020-11-14 15:41 | NUR ---
REPORTED POOR SLEEP LAST PM WITH REPORTS OF [place]-REFUSED TO GET UP FOR BREAKFAST DESPITE MULTIPLE PROMPTS.DID GET UP AT APPROX 1030 WITH ASSIST OF OT-ASSISTED IN SHOWERING-REMAINS SOMULENT AFTER BEING BROUGHT TO DAYROOM WITH PEERS-RESTING FOR SHORT INTERVALS IN GERICHAIR. WHEN AWAKE REPORTS FEELS "NERVOUS" "DR. ROBERTSON IS COMING DOWN TO SEE ME AND MEET WITH ME"SOME MOOD LABILITY WILL BECOME ABRUPTLY TEARFULWHILE SITTING IN DAYROOM CALLING A MALE PEER GURVINDER -WHEN INFORMED HIS NAME WAS SOMETHING ELSE TEARFULLY STATES "WELL HE LOOKS LIKE MY NEPHEW GURVINDER"INCONTINENT OF LOOSE STOOLX 2 TODAY,
--- NOTE | 2020-11-14 16:09 | NUR ---
ARIEL spoke with Glenroy at [facility]. Glenroy stated the facility can accept the Pt for SNF. Glenroy has submitted and authorization to the [facility] and is awaiting approval. Once approved [facility] can schedule discharge. ARIEL did inform the Pt's of this information. ARIEL will contiue to follow
[2020-11-14 19:35] VITALS: BP 130/77
--- NOTE | 2020-11-14 23:45 | NUR ---
Alert and orientated X4. Pt brief and pad saturated with yellow urine, compliant with shower and shampoo. Denies SI/HI. Calm and cooperative, compliant with meds. Once in bed she requested sleeping pill, none ordered. Explained that many of her PM meds have sleepiness as a side effect. Offered Tylenol, which she accepted. No s/o distress but she stated she was having pain 8/10 in her belly (under abdominal folds) and legs. Sleeping soundly since Tylenol administration. Breath sounds clear. Reg HR auscultated. Color pink with brisk capillary refill and palpable peripheral pulses. No edema noted. Incontinent of yellow urine in brief and pad. States last BM was today, senna held d/t loose stools. Active bowel sounds over large, soft, rounded abdomen. Areas beneath abdominal and inguinal folds dried and nystatin applied. Slightly pink without excoriation. Able to ambulate to shower chair and back and to room without difficulty. Completed shower/shampoo in shower chair with assistance. Currently sleeping in bed without s/o distress, chair alarm set.
[2020-11-15 09:13] VITALS: BP 149/97
[2020-11-15 11:19] VITALS: BP 1469/97; BP 149/97
--- NOTE | 2020-11-15 13:19 | NUR ---
1315 RESUMMED CARE FROM OVERNIGHT SHIFT THIS AM, PATIENT IN ROOM ASLEEP. PATIENT REFUSED HER BREAKFAST BUT DID TAKE HER MEDICATION WITH MILK. PATIENTS ABDOMNEN SOFT BOWEL SOUNDS PRESENT PATIENTS LUNGS CLEAR. PATIENT DENIES SI/HI/AH/VH AT PRESENT, PATIENT STATED SHE JUST WANTS TO REST AND DID NOT PARTICIPATES IN ANY GROUPS. PATIENT CALM COOPERATIVE JUST WANTS TO STAY IN ROOM. WILL CONTINUE TO MONITOR PATIENT FOR SAFETY AND BEHAVIORS.
[2020-11-15 19:15] VITALS: BP 124/78
--- NOTE | 2020-11-15 22:49 | NUR ---
Alert and orientated X4. Calm, cooperative and compliant. Interacting with staff and peers. States she is feeling alot better since admission and is expressing appreciation for . Denies SI/HI. States she had pain 7/10 on R upper abdomen, resolved with Tylenol. Breath sounds clear. Reg HR auscultated. Color pink with brisk capillary refill and palpable peripheral pulses. No edema noted. Dark yellow urine per commode. Active bowel sounds over large, soft, rounded abdomen. States she had BM early this AM. Areas under abdominal and inguinal folds without reddness or excoriation, nystatin applied per order. Able to ambulate short distances with slightly irregular gait. Currently in bed without s/o distress.
[2020-11-16 08:22] VITALS: BP 96/70
--- NOTE | 2020-11-16 14:16 | NUR ---
DURING AM ASSESSMENT REPORTS FEELING "MUCH BETTER" STATES ANXIETY IS STILL THERE" BUT STATES IS MUCH LOWER LEVEL THAN ON ADMIT. DID SLEEP LATE THIS AM UNTIL APPROX 1000 WHEN GIVEN AM MEDS ASKED IF SHE FELT LIKE SEROQUEL WAS TOO SEDATING FOR HER STATES "NO I USED TO TAKE 700MG AT ONE TIME AND THEY STILL GAVE ME XANAX. DENIES CO/ PAIN/DISCOMFORT-APPETTITE FAIR. DENIES SI/SH. NO ACUTE AGITATION OR PSYCHOSIS NOTED OR REPORTED. REFUSES SENNA DURING AM MED PASS STATING "MY BOWELS ARE FINE IF I TAKE THAT I WILL GET THAT DIARRHEA BACK"
[2020-11-16 16:12] LABS: HEMATOCRIT 40.7 % (37.0-47.0); HEMOGLOBIN 13.4 gm/dL (12.0-15.0); MCH 33.4 pg (26.0-34.0); MCV 101.3 fL (80.0-100.0); PLATELET COUNT 226 thou/uL (150-400); RBC 4.01 mil/uL (4.20-5.00); RDW 14.5 % (10.5-14.5); WBC 7.9 thou/uL (4.0-11.0)
[2020-11-16 16:18] LABS: CALCIUM 9.5 mg/dL (8.5-10.1); CREATININE 1.1 mg/dL (0.6-1.0); POTASSIUM 4.3 mmol/L (3.5-5.1)
[2020-11-16 17:14] LABS: ABSOLUTE NEUTROPHILS 5.1 thou/uL (1.4-8.2)
[2020-11-16 17:15] LABS: METAMYELOCYTES 1 %; MYELOCYTES 1 %
--- NOTE | 2020-11-16 18:38 | NUR ---
CALM AND COOPERATIVE THROUGHOUT REMAINDER OF SHIFT-AMBULATES WITH USE OF ROLLER WALKER TO/FROM DINING ROOM FOR LUNCH AND SUPPER-VISITS WITH PEERS DURING FREE TIME-DENIES C/O PAIN/DISCOMFORT. PLEASANT WITH STAFF AND FOLLOWS VERBAL DIRECTION/INSTRUCTIONS WITHOUT RESISTANCE. DID HAVE LARGE LOOSE FOUL SMELLING STOOL IN COMMODE THIS PM-REQUESTING MD DC ALL LAXATIVES AND STOOL SOFTNERS-ENCOURAGED TO SPEAK WITH MD IN AM-MESSAGE LEFT FOR ONCOMING SHIFT.
[2020-11-16 19:31] VITALS: BP 136/85
--- NOTE | 2020-11-17 02:52 | NUR ---
ASSESSMENT: PT REMAIN ALERT AND ORIENT TIMES FOUR. PT WAS SITTING IN THE DAY AREA, IN A JOVANNA CHAIR. PT STATE THAT SHE HAS NOT BEEN ABLE TO SLEEP WELL DURING THE NIGHT. REQUESTED TO HAVE 2 TYLENOLS LATER DUR9NG THE NIGHT. AFTER WATCHING TELEVISION AND EATING A HS SNACK, PT WANTED TO GO TO BED. WAS ABLE TO USE THE WALKER WITH TRANSFER INTO THE BR AND THEN TO BED. DENIES DEPRESSION. TOOK MEDS WILLINGLY. VSS STABLE, AFEBRILE. WILL CONTINUE TO MONITOR.
[2020-11-17 08:48] VITALS: BP 158/99
--- NOTE | 2020-11-17 10:50 | NUR ---
Nutrition F/u: wt stable. Pt has refused 7 meals in the past week per chart, intake most other meals recorded 75-100%. Probiotic, statin and other meds reviewed. Pt noted yesterday that her "bowels are fine." BUN 5, Cr 1.1. No recent albumin. Pt does not appear at significant nutrition risk.
[2020-11-17] MEDS ORDERED: ENOXAPARIN40 MG/0.1 SUBQ (15:23)
[2020-11-17] MEDS ORDERED: DIVALPROEX SOD500 M1 PO ×2 (15:25→15:26)
[2020-11-17] MEDS ORDERED: NEURONTIN 300M300 M2 PO (15:27)
[2020-11-17] MEDS ORDERED: SEROQUEL300 MG PO (15:28)
[2020-11-17] MEDS ORDERED: FLORANEX GRANU1 EACH PO (15:29)
[2020-11-17] MEDS ORDERED: MAGNESIUM400 MG PO (15:29)
[2020-11-17] MEDS ORDERED: SYNTHROID25 MC1 PO (15:30)
[2020-11-17] MEDS ORDERED: SENNA8.8 MG/5 M PO (15:30)
[2020-11-17] MEDS ORDERED: NYSTATIN-TRIAMC15 GM TOP (15:33)
[2020-11-17] MEDS ORDERED: Dermacerin 4 OZ. TOP (15:34)
--- NOTE | 2020-11-17 15:55 | NUR ---
ARIEL was able to speak with Sidney at [facility]. Sidney informed they have recieved approval from the Pt's insurance for rehab. Sidney is willing to accept Pt into the facility today. ARIEL called and informed Pt's , El about the approval and discharge. El stated he would bring clothes to the Pt today before discharge. D/C is set for 11/17/2020 @1600. [facility] will transport.
--- NOTE | 2020-11-17 16:22 | NUR ---
Assumed pt care at 0700. pt was alert and oriented x4. Assessments completed,vss. took meds whole, no difficulty noted. pt participated in groups. denies si/hi. denies pain. ambulates with a walker. At 1620 pt was d/c to [facility]. pt was transported by secure transport. consent was called to [facility], D/C INSTRUCTION WAS GIVEN TO [facility] VIA PHONE. PT WAS D/C WITH HER BELONGINGS, D/C INSTRUCTIONS, D/C SUMMARY, PRESCRIPTION SCRIPT. REPORT WAS CALLED TO SERENA Ordaz AT [facility].
== END 2020-11-17 16:15 | DRG 885 ==
LOC: SBH
PROVIDERS: Hospitalist; Internal Medicine; ADMIT Psychiatry & Neurology Psychiatry; ATTEND Psychiatry & Neurology Psychiatry
DX: F31.2 Bipolar disorder, current episode manic severe with psychotic features (principal); N39.0 Urinary tract infection, site not specified; Z68.43 Body mass index [BMI] 50.0-59.9, adult; E87.1 Hypo-osmolality and hyponatremia; G40.802 Other epilepsy, not intractable, without status epilepticus; M48.56XA Collapsed vertebra, not elsewhere classified, lumbar region, initial encounter for fracture; I10 Essential (primary) hypertension; R32 Unspecified urinary incontinence; E66.01 Morbid (severe) obesity due to excess calories; E87.8 Other disorders of electrolyte and fluid balance, not elsewhere classified; E78.5 Hyperlipidemia, unspecified; G89.29 Other chronic pain; M54.9 Dorsalgia, unspecified; F60.0 Paranoid personality disorder; K13.70 Unspecified lesions of oral mucosa; R19.7 Diarrhea, unspecified; R26.9 Unspecified abnormalities of gait and mobility; Z79.899 Other long term (current) drug therapy; Z88.5 Allergy status to narcotic agent; Z88.8 Allergy status to other drugs, medicaments and biological substances
CPT/HCPCS: 10880

== ENCOUNTER 2020-10-27 18:25 | Emergency (ER) | payer BC ==
[~2020-10-27] VITALS: Ht 175.3 cm; Wt 145.2 kg
[2020-10-27] MEDS ORDERED: DIVALPROEX SOD500 M1 PO (19:19)
[2020-10-27] MEDS ORDERED: PROZAC20 M1 PO (19:51)
[2020-10-27] MEDS ORDERED: NEURONTIN100 MG PO (19:52)
[2020-10-27] MEDS ORDERED: LISINOPRIL10 MG PO (19:54)
[2020-10-27] MEDS ORDERED: MELOXICAM15 MG PO (19:55)
[2020-10-27] MEDS ORDERED: REMERON15 M2 PO (19:56)
[2020-10-28 04:41] VITALS: BP 136/72
== END 2020-10-28 04:53 | disposition still patient (30) ==
LOC: ER 18:25
DX: F20.2 Catatonic schizophrenia (principal); K21.9 Gastro-esophageal reflux disease without esophagitis; E03.9 Hypothyroidism, unspecified; Z90.710 Acquired absence of both cervix and uterus; Z90.49 Acquired absence of other specified parts of digestive tract; Z90.89 Acquired absence of other organs; Z79.899 Other long term (current) drug therapy; Z88.5 Allergy status to narcotic agent; Z88.8 Allergy status to other drugs, medicaments and biological substances; Z20.822 Contact with and (suspected) exposure to COVID-19